=== PATIENT | male | born 1990 | race African-American/Black ===

== ENCOUNTER 2017-08-12 09:40 | Emergency (ER) | payer OTHER ==
[~2017-08-12 09:40] MED LIST: DIVA500T8 OR; ERYT1O EACH EYE; FERR325T PO; LORA-474 PO; NORV10TA PO; POLY119S PO; RISP1 PO; WAL-10TA2 PO
[2017-08-12 09:52] VITALS: BP 137/100; PULSE 88; RESP 18; TEMP 97.9; O2SAT 99
[2017-08-12] MEDS ORDERED: TOPI50TA7 PO (09:57)
[2017-08-12] MEDS ORDERED: LEXA5TAB PO (09:57)
[2017-08-12] MEDS ORDERED: AMLO10TA2 PO (09:57)
[2017-08-12] MEDS ORDERED: LEVO50TA4 PO (09:57)
--- NOTE | 2017-08-12 10:14 | PD ---
HPI . Fall Chief Complaint: Fall Time Seen by Provider: 09:57 Travel History International Travel<30 days: No Contact w/Intl Traveler<30days: No Traveled to known affect area: No History of Present Illness HPI This is a nonambulatory patient with cerebral palsy who presents to us following a fall. He was being offloaded from a transport van. He was belted into his wheelchair. His entire wheelchair tipped off of the lift. He presents complaining with scrapes to both hands as well as his left elbow and left knee. He is complaining with left shoulder and left knee pain. The incident occurred just prior to presentation. He rates his pain at 5/10. He states that he does not need anything for the pain at this time. His caregiver states that she does not know the date of his last tetanus shot. PFSH Past Medical History Asthma: Yes Autoimmune Disease: No Bipolar Disorder: Yes Anxiety: Yes Depression: Yes Heart Rhythm Problems: No Cancer: No Cardiovascular Problems: Yes Cerebral Palsy: Yes (WHEEL CHAIR BOUND) High Cholesterol: No Chemotherapy: No Chest Pain: No Congestive Heart Failure: No Cerebrovascular Accident: No Diabetes: Yes Patient Takes Glucophage: No Diminished Hearing: No Endocrine: No Genitourinary: No Headaches: No Hypertension: Yes Immune Disorder: No Musculoskeletal: No Neurologic: Yes (CEREBRAL PALSY) Psychiatric: Yes Reproductive: No Respiratory: Yes Migraines: No Radiation Therapy: No Seizures: Yes Thyroid Disease: No Tetanus Vaccination: Unknown Past Surgical History Abdominal Surgery: Yes (APPENDECTOMY) AICD: No Appendectomy: Yes Arteriovenous Shunt: No Cardiac Surgery: No Ear Surgery: No Endocrine Surgery: No Eye Surgery: No Genitourinary Surgery: No Gynecologic Surgery: No Insulin Pump: No Joint Replacement: No Oral Surgery: Yes (TONSILECTOMY) Pacemaker: No Thoracic Surgery: No Tonsillectomy: Yes Other Surgery: Yes Social History Alcohol Use: No Tobacco Use: No Substance Use: No Allergies-Medications (Allergen,Severity, Reaction): Coded Allergies: No Known Allergies (Unverified Adverse Reaction, Unknown, 08/12/17) Reported Meds & Prescriptions Reported Meds & Active Scripts Active Reported Amlodipine (Amlodipine Besylate) 10 Mg Tab 10 Mg PO DAILY Levothyroxine (Levothyroxine Sodium) 50 Mcg Tab 50 Mcg PO DAILY Topiramate 50 Mg Tab 50 Mg PO BID Lexapro (Escitalopram Oxalate) 5 Mg Tab 5 Mg PO DAILY Risperdal (Risperidone) 1 Mg Tab 1 Mg PO HS Iron (Ferrous Sulfate) 325 Mg Tab 325 Mg PO BID Miralax 119 Gm Bottle (Polyethylene Glycol) 119 Gm Powd 17 Gm PO DAILY 17 GRAMS = 1 TABLESPOON DISSOLVED IN 4 TO 8 OUNCES OF BEVERAGE Norvasc (Amlodipine Besylate) 10 Mg Tab 10 Mg PO DAILY Ativan (Lorazepam) 1 Mg Tab 1 Mg PO Q8 PRN Erythromycin Opht 0.5% Oint (Erythromycin) 0.5 % Oint 1 Applic EACH EYE BID Instill 1/2 inch Loratadine 10 Mg Tab 10 Mg PO DAILY Divalproex Sodium 500 Mg Tab 500 Mg OR BID Review of Systems Except as stated in HPI: all other systems reviewed are Neg Physical Exam Narrative GENERAL: Awake and alert and in no acute distress. He speaks very slowly. SKIN: Warm and dry. Normal color and turgor. He has superficial abrasions on both hands, the left elbow and the left knee. HEAD: Normocephalic/atraumatic. EYES: Pupils are equal. Extraocular movements are intact. NECK: Normal range of motion. Supple. CARDIOVASCULAR: Regular rate and rhythm. RESPIRATORY: Nonlabored respirations. Normal sats. MUSCULOSKELETAL: Atraumatic. Normal muscle tone. Muscle atrophy and spasticity of both lower extremities and the left upper extremity. There is no obvious deformity of the left shoulder or left knee. NEUROLOGICAL: A and O 3. Nonfocal. PSYCHIATRIC: Appropriate mood and affect. Data Data Last Documented VS Vital Signs Date Time Temp Pulse Resp B/P (MAP) Pulse Ox O2 Delivery O2 Flow Rate FiO2 08/12/17 09:52 97.9 88 18 137/100 (112) 99 Orders Orders Tetanus/Diphtheria Tox Adult (Tetanus/Di (08/12/17 10:15) Wound Care (08/12/17 10:04) Knee, Complete (4vws) (08/12/17 10:04) Shoulder, Limited(2vws) (08/12/17 10:04) MDM Medical Decision Making Medical Screen Exam Complete: Yes Emergency Medical Condition: Yes Medical Record Reviewed: Yes (In addition to CP, he has a h/o HTN, HL, sz d/o, bipolar d/o and intermittent explosive d/o. ) Differential Diagnosis Differential diagnosis of extremity trauma includes but is not limited to fracture, sprain or strain, dislocation, contusion Narrative Course This patient presents for the evaluation of injury sustained in a fall. He is wheelchair-bound. He was being transported by medical transport van. His wheelchair was being lifted off the van when the wheelchair inadvertently tipped causing him in the wheelchair to fall forward. He presents with scrapes on both hands, the left elbow and the left knee. He is also complaining with left shoulder and left knee pain. The date of his last tetanus shot is unknown. He states that he does not need pain medication at this time. His tetanus will be updated. His wounds will be cleaned and dressed. An x-ray of his left elbow and left knee will be obtained. Last Impressions Shoulder X-Ray 08/12/17 1004 Signed Impressions: CONCLUSION: Anatomic alignment without fracture lung apex clear Knee X-Ray 08/12/17 1004 Signed Impressions: CONCLUSION: Osteopenia consistent with disuse. Fracture not appreciated. Osteopenia makes d etection of subtle fractures difficult. The x-rays were independently reviewed by me. Diagnosis Primary Impression: Contusion of left knee Qualified Codes: S80.02XA - Contusion of left knee, initial encounter Additional Impressions: Multiple abrasions Left shoulder strain Qualified Codes: S46.912A - Strain of unspecified muscle, fascia and tendon at shoulder and upper arm level, left arm, initial encounter Patient Instructions: Abrasion (ED), General Instructions Additional Instructions: Tylenol or ibuprofen as needed for pain. Disposition: 01 DISCHARGE HOME Condition: Stable Erika Dietz MD Aug 12, 2017 10:14
[2017-08-12] MEDS ORDERED: TETANUS/DIPHTHERIA TOXOID ADULT 0.5 ML VIAL IM ONE (10:15)
--- NOTE | 2017-08-12 11:15 | RADRPT ---
EXAM DATE: 08/12/2017 10:53 AM EDT AGE/SEX: 26 years / Male INDICATIONS: Fell out of his wheelchair when getting out of transport. CLINICAL DATA: This is the patient's initial encounter. Patient reports that signs and symptoms have been present for 1 day and indicates a pain score of Nonresponsive. MEDICAL/SURGICAL HISTORY: . cerebral palsy . not known COMPARISON: No prior exams available for comparison. FINDINGS: Bony structures are intact and in normal alignment. Joints are intact without dislocation or signifi cant arthropathy. Osseous density is normal. Soft tissues are unremarkable. No radiopaque foreign bodies seen. CONCLUSION: Anatomic alignment without fracture lung apex clear Electronically signed by: Jose Antonio Pino MD 08/12/2017 11:14 AM EDT
--- NOTE | 2017-08-12 11:57 | RADRPT ---
EXAM DATE: 08/12/2017 10:48 AM EDT AGE/SEX: 26 years / Male INDICATIONS: Fell out of his wheelchair when got transported out of the transport service. CLINICAL DATA: This is the patient's initial encounter. Patient reports that signs and symptoms have been present for 1 day and indicates a pain score of Nonresponsive. MEDICAL/SURGICAL HISTORY: . cerebral palsy . not known COMPARISON: No prior exams available for comparison. FINDINGS: Degenerative changes are present. Bones are osteopenic consistent with disuse. Fracture is not apprec iated. CONCLUSION: Osteopenia consistent with disuse. Fracture not appreciated. Osteopenia makes detection of subtle fra ctures difficult. Electronically signed by: Jose Antonio Pino MD 08/12/2017 11:56 AM EDT
[2017-08-12] MEDS ORDERED: TYLE325T PO (14:30)
== END 2017-08-12 15:02 | disposition home or self-care (01) ==
LOC: NEPD 09:40
DX: S80.02XA Contusion of left knee, initial encounter (principal); S46.912A Strain of unspecified muscle, fascia and tendon at shoulder and upper arm level, left arm, initial encounter; S60.512A Abrasion of left hand, initial encounter; S60.511A Abrasion of right hand, initial encounter; S50.312A Abrasion of left elbow, initial encounter; S80.212A Abrasion, left knee, initial encounter; W17.89XA Other fall from one level to another, initial encounter; Z23 Encounter for immunization; G80.9 Cerebral palsy, unspecified; E11.9 Type 2 diabetes mellitus without complications; I10 Essential (primary) hypertension; G40.909 Epilepsy, unspecified, not intractable, without status epilepticus; F41.8 Other specified anxiety disorders
CPT/HCPCS: 73030; 73564; 90471; 90714